=== PATIENT | female | born 1985 | race African-American/Black ===

== ENCOUNTER 2019-03-23 15:54 | Emergency (ER) | payer OTHER, SELFPAY ==
[2019-03-23 16:01] VITALS: BP 141/82; PULSE 65; RESP 15; TEMP 36.8; O2SAT 99; BMI 24.3
--- NOTE | 2019-03-23 16:21 | ED.ABDPAIN ---
HPI - Abdominal Pain General Chief Complaint: Abdominal Pain Stated Complaint: pain lower pelvic area Time Seen by Provider: 03/23/19 16:00 Source: patient Mode of arrival: ambulatory Limitations: no limitations History of Present Illness HPI narrative: 34-year-old female nonsmoker presents with severe right lower anterior abdominal pain that started today. 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 She denies any history of hernia or other injury. She was seen at [facility] and sent here for further evaluation. Her pain is worse with motion or palpation and improves with sitting still Related Data Allergies Allergy/AdvReac Type Severity Reaction Status Date / Time hydromorphone [From Dilaudid] Allergy itchy rash Verified 03/23/19 15:27 povidone-iodine AdvReac rash Verified 03/23/19 15:27 [From Betadine] soap [From Betadine] AdvReac rash Verified 03/23/19 15:27 Review of Systems Constitutional Denies chills, Denies fever(s), Denies lethargy and Denies weakness Eyes Denies change in vision, Denies eye discharge, Denies irritation and Denies loss of vision ENT Ears, Nose, Mouth, and Throat: Denies change in voice, Denies neck pain and Denies sore throat Cardiovascular Denies chest pain, Denies irregular heart rhythm, Denies lightheadedness, Denies palpitations, Denies dyspnea, Denies dyspnea on exertion and Denies orthopnea Respiratory Denies cough, Denies dyspnea, Denies dyspnea on exertion and Denies wheezing Gastrointestinal Gastrointestinal: Reports abdominal pain, Denies change in bowel habits, Denies diarrhea, Denies nausea and Denies vomiting Genitourinary Denies hematuria, Denies flank pain, Denies urinary incontinence and Denies urinary urgency Musculoskeletal Denies neck pain Integumentary/Breasts Denies pruritus, Denies erythema, Denies rash and Denies wounds Neurologic Denies confusion, Denies loss of vision and Denies weakness Psychiatric Denies anxiety, Denies confusion, Denies depression, Denies homicidal ideation and Denies suicidal ideation Endocrine Denies palpitations Hematologic/Lymphatic Denies easy bruising Allergic/Immunologic Denies wheezing [facility] Social History Smoking Status: Former smoker Social History Smoking Status: Former smoker Exam Narrative Exam Narrative: GEN: AOx3 and in mild distress EYES: Pupils are equal, round, and reactive to light and accommodation. Extraoccular muscles are intact bilaterally. There is no subconjunctival hemorrhage or exudate. CHEST: Lungs are clear to auscultation bilaterally and free of wheezes, rales, or rhonchi. Heart rate is regular rhythm, there are no murmurs, clicks, rubs, or gallops. There is no chest wall tenderness. ABD: Abdomen is soft. Palpable rent, but unlikely hernia in RLQ. There is no guarding or rebound. Bowel sounds are normal in all 4 quadrants. There is no mass or organomegaly. EXT: Full painless ROM of all extremities with no loss of sensation or strength. SKIN: Warm, pink, and dry. No erythema or rash Initial Vital Signs Initial Vital Signs: Vital Signs Temperature 98.2 F 03/23/19 16:01 Pulse Rate 65 03/23/19 16:01 Respiratory Rate 15 03/23/19 16:01 Blood Pressure 141/82 H 03/23/19 16:01 Pulse Oximetry 99 03/23/19 16:01 Course Vital Signs - 8 hr 03/23/19 16:01 Temperature 98.2 F Pulse Rate 65 Respiratory Rate 15 Blood Pressure 141/82 H Pulse Oximetry 99 MDM - Abdominal Pain MDM Narrative Medical decision making narrative: 34F, otherwise healthy with tearing burning pain after lifting heavy object. With palpable, reproducible abdominal wall defect consistent with rent vs. early hernia. No imaging required at this time. Return precautions given. Recommendation to limit lifting to <15 pounds for 7 days and follow up with her provider before advancing activity Discharge Plan Departure Patient Disposition: Home Clinical Impression: Abdominal wall bulge Discharge Date/Time: 03/23/19 16:32 Interventions: ED Discharge Assessment Last Done: 03/23/19 16:32 Instructions: DI for Abdominal Muscle Strain Activity Restrictions/Additional Instructions: *You have been diagnosed with [ abdominal wall strain, possible early hernia] *What to do: *Take medications as directed *Follow up with your primary care provider in 5-7 days, call for an appointment. Let them know you were seen in the Emergency Department and that we ask that you be seen in follow up *No lifting heavy objects over 15 pounds at least until you are seen in follow up *Return to ER if you should have any new, worsening or concerning symptoms, such as [ worsening pain, persistent vomiting, inability to have a bowel movement or other bothersome symptoms] Stand Alone Forms: Work Release Note
--- NOTE | 2019-03-23 17:10 | ED_ITS ---
HPI - Abdominal Pain General Chief Complaint: Abdominal Pain Stated Complaint: pain lower pelvic area Time Seen by Provider: 03/23/19 16:00 Source: patient Mode of arrival: ambulatory Limitations: no limitations History of Present Illness HPI narrative: 34-year-old female nonsmoker presents with severe right lower anterior abdominal pain that started today. 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 She denies any history of hernia or other injury. She was seen at [facility] and sent here for further evaluation. Her pain is worse with motion or palpation and improves with sitting still Related Data Allergies Allergy/AdvReac Type Severity Reaction Status Date / Time hydromorphone [From Dilaudid] Allergy itchy rash Verified 03/23/19 15:27 povidone-iodine AdvReac rash Verified 03/23/19 15:27 [From Betadine] soap [From Betadine] AdvReac rash Verified 03/23/19 15:27 Review of Systems Constitutional Denies chills, Denies fever(s), Denies lethargy and Denies weakness Eyes Denies change in vision, Denies eye discharge, Denies irritation and Denies loss of vision ENT Ears, Nose, Mouth, and Throat: Denies change in voice, Denies neck pain and Denies sore throat Cardiovascular Denies chest pain, Denies irregular heart rhythm, Denies lightheadedness, Denies palpitations, Denies dyspnea, Denies dyspnea on exertion and Denies orthopnea Respiratory Denies cough, Denies dyspnea, Denies dyspnea on exertion and Denies wheezing Gastrointestinal Gastrointestinal: Reports abdominal pain, Denies change in bowel habits, Denies diarrhea, Denies nausea and Denies vomiting Genitourinary Denies hematuria, Denies flank pain, Denies urinary incontinence and Denies urinary urgency Musculoskeletal Denies neck pain Integumentary/Breasts Denies pruritus, Denies erythema, Denies rash and Denies wounds Neurologic Denies confusion, Denies loss of vision and Denies weakness Psychiatric Denies anxiety, Denies confusion, Denies depression, Denies homicidal ideation and Denies suicidal ideation Endocrine Denies palpitations Hematologic/Lymphatic Denies easy bruising Allergic/Immunologic Denies wheezing [facility] Social History Smoking Status: Former smoker Social History Smoking Status: Former smoker Exam Narrative Exam Narrative: GEN: AOx3 and in mild distress EYES: Pupils are equal, round, and reactive to light and accommodation. Extraoccular muscles are intact bilaterally. There is no subconjunctival hemorrhage or exudate. CHEST: Lungs are clear to auscultation bilaterally and free of wheezes, rales, or rhonchi. Heart rate is regular rhythm, there are no murmurs, clicks, rubs, or gallops. There is no chest wall tenderness. ABD: Abdomen is soft. Palpable rent, but unlikely hernia in RLQ. There is no guarding or rebound. Bowel sounds are normal in all 4 quadrants. There is no mass or organomegaly. EXT: Full painless ROM of all extremities with no loss of sensation or strength. SKIN: Warm, pink, and dry. No erythema or rash Initial Vital Signs Initial Vital Signs: Vital Signs Temperature 98.2 F 03/23/19 16:01 Pulse Rate 65 03/23/19 16:01 Respiratory Rate 15 03/23/19 16:01 Blood Pressure 141/82 H 03/23/19 16:01 Pulse Oximetry 99 03/23/19 16:01 Course Vital Signs - 8 hr 03/23/19 16:01 Temperature 98.2 F Pulse Rate 65 Respiratory Rate 15 Blood Pressure 141/82 H Pulse Oximetry 99 MDM - Abdominal Pain MDM Narrative Medical decision making narrative: 34F, otherwise healthy with tearing burning pain after lifting heavy object. With palpable, reproducible abdominal wall defect consistent with rent vs. early hernia. No imaging required at this time. Return precautions given. Recommendation to limit lifting to <15 pounds for 7 d ays and follow up with her provider before advancing activity Discharge Plan Departure Patient Disposition: Home Clinical Impression: Abdominal wall bulge Discharge Date/Time: 03/23/19 16:32 Interventions: ED Discharge Assessment Last Done: 03/23/19 16:32 Instructions: DI for Abdominal Muscle Strain Activity Restrictions/Additional Instructions: *You have been diagnosed with [ abdominal wall strain, possible early hernia] *What to do: *Take medications as directed *Follow up with your primary care provider in 5-7 days, call for an appointment. Let them know you were seen in the Emergency Department and that we ask that you be seen in follow up *No lifting heavy objects over 15 pounds at least until you are seen in follow up *Return to ER if you should have any new, worsening or concerning symptoms, such as [ worsening pain, persistent vomiting, inability to have a bowel movement or other bothersome symptoms] Stand Alone Forms: Work Release Note
== END 2019-03-23 16:32 | disposition home or self-care (01) ==
PROVIDERS: Emergency Provider Emergency Medicine
DX: R19.00 Intra-abdominal and pelvic swelling, mass and lump, unspecified site (principal); X50.0XXA Overexertion from strenuous movement or load, initial encounter; Y99.0 Civilian activity done for income or pay
CPT/HCPCS: 99282

== ENCOUNTER → 2021-02-17 17:40 | Outpatient (CLI) | payer OTHER, SELFPAY ==
--- NOTE | 2021-02-17 | DI.MRI.S_ITS ---
PROCEDURE: MR KNEE RT WO CON INDICATIONS: Chondromalacia patellae, rt knee TECHNIQUE: Noncontrast sagittal PD fast spin echo and T2 fast spin echo with fat saturation, sagittal 3-D FLASH with fat saturation; coronal T1 spin echo and PD fast spin echo with fat saturation, and axial PD fast spin echo with fat saturation through the knee. COMPARISON: None. FINDINGS: Menisci: Lateral meniscus intact. Marked blunting of the free margin of the medial meniscus. Cruciate ligaments: Anterior cruciate ligament appears intact. Posterior cruciate ligament appears intact. Medial structures: The medial collateral ligament appears intact. Semimembranosus tendon appears intact. Visualized portions of the pes anserinus tendons appear normal. No abnormal bursal fluid. Lateral structures: The lateral collateral ligament intact. Biceps femoris tendon appears intact. Popliteus tendon grossly unremarkable. Iliotibial band appears intact. Anterior structures: Quadriceps tendon intact. Medial and lateral patellofemoral ligaments intact. There is mild patellar tendinopathy. Prepatellar and superficial infrapatellar subcutaneous edema/fluid. Bones and cartilage: No focal marrow contusion or discrete low signal fracture line. Within the medial compartment, mild surface fraying of the central weight-bearing femoral and tibial cartilage. Within the lateral compartment, mild surface fraying of the central weight-bearing femoral and tibial cartilage. Intrasubstance signal change of the tibial cartilage. Within the patellofemoral compartment, no focal cartilage defect. Joint space: No joint effusion. Trace fluid between the semimembranosus and medial gastrocnemius tendons without definite formed cyst. No specific evidence of intra-articular loose body. IMPRESSION: Blunting of the free margin of the medial meniscus raising possibility of radial tear. Mild joint degeneration as above Patellar tendinopathy with adjacent fluid/edema Dictated by: Brayden Ridley M.D. on 02/18/2021 at 9:35 Approved by: Brayden Ridley M.D. on 02/18/2021 at 9:40
== END ==
PROVIDERS: Referring Provider Counselor Mental Health; Visit Provider Counselor Mental Health
DX: M22.41 Chondromalacia patellae, right knee (principal); M17.11 Unilateral primary osteoarthritis, right knee
CPT/HCPCS: 73721

== ENCOUNTER → 2022-12-14 10:21 | Outpatient (CLI) | payer BC, SELFPAY ==
--- NOTE | 2022-12-14 | DI.RAD.S_ITS ---
PROCEDURE: XR CHEST 2V INDICATIONS: Other nonspecific abnormal finding of lung field TECHNIQUE: 2 views of the chest were acquired. COMPARISON: None. FINDINGS: Surgical changes and devices: None. Lungs and pleura: Lungs are clear. No pleural effusions or pneumothorax. Mediastinum: Mediastinal contours are normal. Heart size is normal. Bones and chest wall: No suspicious bony abnormalities. Soft tissues appear unremarkable. IMPRESSION: No acute cardiopulmonary pathology. Dictated by: Vignesh Lutz M.D. on 12/14/2022 at 12:01 Approved by: Vignesh Lutz M.D. on 12/14/2022 at 12:02
== END ==
PROVIDERS: PCP Registered Nurse; Referring Provider Registered Nurse; Visit Provider Registered Nurse
DX: R91.8 Other nonspecific abnormal finding of lung field (principal)
CPT/HCPCS: 71046

== ENCOUNTER → 2023-12-08 13:34 | Outpatient (ROUT) | payer BC, SELFPAY ==
[2023-12-08 13:50] LABS: INR 1.1 (0.9-1.3); Prothrombin Time 12.3 SECONDS (9.4-12.5)
== END ==
PROVIDERS: PCP Registered Nurse; Visit Provider Registered Nurse
DX: N93.9 Abnormal uterine and vaginal bleeding, unspecified (principal); R10.2 Pelvic and perineal pain; Z98.890 Other specified postprocedural states
CPT/HCPCS: 85610

== ENCOUNTER → 2023-12-09 06:36 | Outpatient (CLI) | payer BC, SELFPAY ==
--- NOTE | 2023-12-09 06:38 | DI.US.S_ITS ---
PROCEDURE: US PELVIC COMPLETE INDICATIONS: ABNORMAL UTERINE BLEEDING/HISTORY OF MYOMECTOMY TECHNIQUE: Real-time scanning was performed of the pelvic organs, with image documentation. Additional endovaginal scanning was necessary due to incomplete visualization of the adnexal and endometrial structures by transabdominal scanning. COMPARISON: None. FINDINGS: Uterus: Uterus is anteverted and enlarged in size at 10.8 x 9.0 x 9.2 cm. The myometrium is heterogeneous showing multiple fibroids. The endometrium measures 6.4 mm combined thickness. More than 3 fibroids are noted; lobe all fibroids are: Right anterior intramural measuring 3 x 2.4 x 2.8 cm; Midline intramural fibroids measuring 5.9 x 6.8 x 4.9 cm and 4.2 x 4.5 x 3.8 cm respectively. Ovaries: Ovaries were not visualized Other: No pathologic free abdominal or pelvic fluid. IMPRESSION: Enlarged, fibromatous uterus Nonvisualized ovaries >> We strive to produce accurate, complete, and clear reports of imaging services. To assist us in improving patient care, this report was composed using standard report templates and voice recognition software. Therefore, it may contain abnormal punctuation, insertions and/or omissions. Occasional wrong-word or sound-alike substitutions may occur. Though we review the report and make efforts to correct it, we do recommend that the report be read carefully in proper context to recognize any text inaccuracies. Dictated by: Anjel Boothe M.D. on 12/09/2023 at 13:00 Approved by: Anjel Boothe M.D. on 12/09/2023 at 13:07
== END ==
PROVIDERS: PCP Registered Nurse; Referring Provider Registered Nurse; Visit Provider Registered Nurse
DX: N93.9 Abnormal uterine and vaginal bleeding, unspecified (principal); D25.1 Intramural leiomyoma of uterus; R10.2 Pelvic and perineal pain; Z98.890 Other specified postprocedural states
CPT/HCPCS: 76830; 76856

== ENCOUNTER 2024-01-26 12:22 | Day surgery (SDC) | payer BC, SELFPAY ==
[2024-01-12 15:04] VITALS: BMI 38.6
[2024-01-26] VITALS (9 sets, daily range): BP systolic 117–133; BP diastolic 60–77; PULSE 66–85; RESP 16–25; TEMP 36.3–37; O2SAT 96–100; BMI 38.6
--- NOTE | 2024-01-26 | PATH_ITS ---
[facility] Accession Number: [id number] No. of containers..01 Tissue . 01 Material submitted: . uterus - UTERUS, CERVIX, BILATERAL FALLOPIAN TUBES . 01 Diagnosis: UTERUS, CERVIX AND BILATERAL FALLOPIAN TUBES, HYSTERECTOMY AND BILATERAL SALPINGECTOMY: Cervix with no significant diagnostic alterations. Secretory endometrium; no endometrioid intraepithelial neoplasia and no malignancy. Adenomyosis. Leiomyomata. Bilateral fimbriated fallopian tubes with no significant diagnostic alterations. [facility] 02/02/2024 1103 Local . 01 Electronically signed: . Cindy Gan MD, Pathologist NPI- [id number] . 01 Gross description: . Received in formalin, labeled with two identifiers and uterus, cervix, bilateral fallopian tubes, is a fragmented uterus (601 gm, 19.9 x 15.5 x 7.5 cm) with cervix (3.0 x 2.5 cm), two unoriented roughened presumed fallopian tubes (2.2 x 0.5 cm and 4.2 x 0.7 cm, respectively) with no additional adnexa. The serosa is garibay and wrinkled with areas of pinpoint hemorrhage measuring up to 0.5 cm in greatest dimension. The ectocervix is garibay and wrinkled, and a long purple suture is identified with no designation per the requisition. The paracervical margin is inked blue. The os is slit-like measuring 1.2 cm in diameter. The presumed endometrium is garibay and velvety, averaging 0.1 cm thick. The myometrium is garibay and trabecular with multiple well-circumscribed, white, whorled nodules measuring up to 5.5 cm in greatest dimension with no hemorrhage or necrosis identified. The longer tube has roughened serosa with possible cauterized fimbriae with no cysts identified. Sectioning reveals an unremarkable stellate lumen. The shorter tube has roughened garibay serosa with possible fimbriae and no cysts identified. Sectioning reveals an unremarkable pinpoint lumen. . Compactor Driver sections are submitted as follows: A1: Cervix. A2: Endometrium. A3: Serosa with pinpoint hemorrhage. A4-A5: Nodules. A6: Longer fallopian tube to include one-half of bisected fimbriae and cross sections. A7: [place] fallopian tube to include one-half of bisected fimbriae and cross sections. ([id number]) /FRR 01/28/2024 1605 Local . 01 Pathologist provided ICD-10: N92.0, D25.9, N80.30 . 01 CPT . 542874 Specimen Comment: A courtesy copy of this report has been sent to [facility] Performed at: 01 [facility] [address] [place] [address], [place], [place] [id number] MD Amari Kumar MD Phone: [phone]
--- NOTE | 2024-01-26 13:02 | PM.PREOP ---
Pre-operative Note Interval Note History & Physical reviewed/Exam performed by Physician: Yes Changes to H&P: No H&P completed within 30 days and has changed as indicated here:: see H&P from 01/23/24
[2024-01-26] MEDS: LACTATED RINGERS 1,000 ML 21 ML IV ×3 (13:05→21:10)
[2024-01-26] MEDS: SCOPOLAMINE 1 PATCH TOP (13:05)
[2024-01-26] MEDS: ACETAMINOPHEN 325 MG TABLET 975 MG PO (13:07)
[2024-01-26] MEDS: CEFAZOLIN 2 GM/100 ML PREMIX 100 ML IV (13:41)
[2024-01-26 13:43] LABS: Add Manual Diff / Slide Review NO; Basophils Absolute Auto 0 /uL (0-100); Basophils Percent Auto 0.6 % (0-2); Eosinophils Absolute Auto 0 /uL (0-450); Eosinophils Percent Auto 0.7 % (2-4); Hematocrit 30.9 % (36-46); Hemoglobin 10.1 g/dL (12.0-16.0); Lymphocytes Absolute Auto 1200 /uL (1100-4500); Lymphocytes Percent Auto 24.6 % (25-40); Mean Corpuscular HGB Conc 32.8 % (30-36); Mean Corpuscular Hemoglobin 27.5 PG (26-34); Mean Corpuscular Volume 83.8 fL (80-100); Monocytes Absolute Auto 400 /uL (0-900); Monocytes Percent Auto 8.5 % (3-14); Neutrophils Absolute Auto 3300 /uL (1500-7000); Neutrophils Percent Auto 65.6 % (50-75); Platelet Count 255 X10^3/uL (150-400); Red Blood Cell Count 3.69 X10^6/uL (4.0-5.2); Red Cell Distribution Width 14.7 % (11.6-14.8)
--- NOTE | 2024-01-26 14:19 | SUR.OPER ---
Lithotomy on padded OR bed. [place] Pad Positioner under torso. Head on pillow, arms padded and tucked at sides. Legs secured in padded yellow fins stirrups.
[2024-01-26] MEDS: BUPIVACAINE 0.25% (PF) VIAL 30 ML INJ (14:26)
--- NOTE | 2024-01-26 17:00 | PM.OP.1 ---
Operative Date/Time/Diagnoses Date of procedure: 01/26/24 Time of procedure: 13:30 Pre-op diagnosis: 1. Abnormal uterine bleeding 2. Uterine leiomyomas Post-op diagnosis: same Procedure & Clinicians Procedure: Total laparoscopic hysterectomy Bilateral salpingectomy Cystoscopy Same procedure as scheduled: Yes Indications: 38yo G0 with known uterine fibroids with history of having had an open myomectomy in 2019, and states that her pain and bleeding were improved after this. She states that over the last few years, however, her periods have become increasingly heavy and painful again. She is currently having monthly cycles, lasting 2-4 days, with heavy flow. She states that she will soak through a maxi pad every 1-2 hours. She has to sleep on a towel and where sweats at night because she will soak through. She desires definitive surgical management. Surgeon: Brenda Quinn District Loss Prevention Manager: Madeline Dupree Anesthesia Type: General Operative Notes Findings: Enlarged multifibroid uterus with suspected endometriosis implants. Normal bilateral fallopian tubes, and bilateral ovaries. Some adhesions noted between the fallopian tubes and the pelvic sidewall. Normal appearing liver edge and gallbladder. Normal appendix. Closure Type: primary Specimen(s): other (uterus, cervix, bilateral fallopian tubes) Applied: catheter Estimated Blood Loss (mL): 500 Blood products transfused: none Procedure in detail: The risks, benefits, indications and alternatives of the procedure were reviewed with the patient and informed consent was obtained. The pt was taken to the operating room where general anesthesia was obtained without difficulty. The pt was then placed in the low lithotomy position using Stas Stirrups and arms were tucked with padding. Sequential compression devices were placed bilaterally for VTE prophylaxis. She was then prepped and draped in the sterile fashion and a Mina catheter was placed. A mediafeedia-care uterine manipulator was placed through the cervix into the uterus for uterine manipulation. Attention was then turned to the patient?s abdomen were a 5mm skin incision was made in the inferior aspect of the umbilicus after injecting 0.25% Marcaine. Attempt made to insert a 5mm trocar and sleeve into the peritoneal cavity under direct visualization, however this was unsuccessful. Attempt was made to insert the Veress needle, however this was also unsuccessful. The skin incision was then extended, and S retractors were used to dissect down to the fascia, which was then snipped with Jiménez scissors. The 5mm trocar was then able to be inserted under direct visualization into the peritoneal cavity at a 90-degree angle while tenting up the abdominal wall. Intra-peritoneal placement was confirmed under direct visualization with the laparoscope with entry pressure <5 mmHg. A pneumoperitoneum was obtained with several liters of CO2 gas, maximum pressure of 15 mmHg. Upon entry into the peritoneal cavity, structures immediately below the incision were inspected and found to be free of injury. A survey of the patient's abdomen and pelvis was notable for the above findings. Two additional 5mm port sites, one in the right lateral side and one in the left lateral side, were placed under direct laparoscopic guidance. The Powerseal device was used to clamp, cut, and ligate the left fallopian tube, which was removed via the lateral port. The same procedure was done on the right side, with the right fallopian tube removed from the abdomen. The utero-ovarian and round ligaments were then clamped, cut, and ligated bilaterally. The anterior broad ligament was then incised along the bladder reflection bilaterally and the bladder was dissected off the lower uterine segment until endopelvic fascia was visualized. The scope was then exchanged for a 30 degree scope for better visualization around the uterus. The uterine arteries were thought to be ligated, however with further skeletonization of the colpotomy ring, the uterine on the left side was transected. The bleeding was able to be controlled with the Powerseal. The uterosacral ligaments and cardinal ligaments were then transected bilaterally. The posterior colpotomy was then made using the Bovie L-hook and continued circumferentially inferior to the cervix using the colpotomy ring as a guide. Attention was then directed vaginally. The entire cervix and uterus were then morcellated vaginally, and completely removed from the abdomen. There was brisk bleeding from the right cardinal ligament, thus this was carefully ligated with an 0 Vicryl [id number] suture. Excellent hemostasis was noted. The vaginal cuff was then closed vaginally with a series of 0 Vicryl [id number] sutures. Due to the morcellation process, the vagina was then irrigated, inspected, and no injury was noted. The mina catheter was then removed, and the 70 degree cystoscope was then primed and advanced through the urethra and into the bladder. Both ureteral orifices were identified and bilateral efflux of urine was visualized. A survey of the bladder did not show defects or visible suture. The cystoscope was then removed and the bladder was drained, and the mina catheter was replaced. Attention was then returned to the abdomen, where the pelvis was then irrigated and all pedicles inspected. Excellent hemostasis was noted. The pneumoperitoneum was then released, and the ports were removed. The skin incisions were then reapproximated using 4-0 monocryl suture in a subcuticular fashion and covered with Dermabond. At the completion of the case the sponge and needle counts were correct x 2. The patient was taken to the PACU in stable condition. Complications: none Post-operative Condition: stable Disposition: PACU Plan for aftercare: Plan for overnight stay with discharge in the morning.
[2024-01-26] MEDS: OXYCODONE IR 5 MG TABLET PO ×2 (17:16→21:12)
[2024-01-26] MEDS: KETOROLAC 30 MG/ML VIAL IV ×2 (17:43→23:58)
[2024-01-26] MEDS: ONDANSETRON 4 MG/2 ML INJ IV (17:57)
[2024-01-26] MEDS: MORPHINE 2 MG/ML INJ IV (18:20)
--- NOTE | 2024-01-26 18:31 | PC.NURSE ---
Patient arrived from PACU at 1730 drowsy and moaning she is able to answer yes and no questions. But just appears uncomfortable saying It hurts and I'm cold. VSS, afebrile on RA. 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 Danette pad with scant bleeding. Goyal in place, bed alarm on, call light in reach, SCD's on and IVF LR at 21ml/hr. She continues to moan in pain after toradol IV administered, and is burping and feeling nauseated. Per spouse at the bedside the nausea is typical for the patient after anesthesia. MD Quinn notified of discomfort and patient given 2 mg Morphine IV x1 with good effect. Currently resting quietly with continouos pulse ox and post op VS. Continue frequent monitoring.
--- NOTE | 2024-01-26 19:53 | PC.NURSE ---
RN received call from lab that technicians were unable to draw patient this a.m. for H/H order due to being a difficult stick. Lab returned this afternoon and attempted to redraw H/H without success. BRENT Ayoub notified and received ok order to d/c H/h check for this shift. VSS. BRENT also notified of patient's copious intake and out put >3,800 this afternoon. Continued to monitor and encourage alternative drinks vs water. No s/sx of edema, SOB or fluid volume overload.
[2024-01-26] MEDS: DOCUSATE 100 MG CAPSULE 200 MG PO (21:09)
[2024-01-26] MEDS: ACETAMINOPHEN 325 MG TABLET 650 MG PO (23:58)
[2024-01-27 01:41] VITALS: BP 109/64; PULSE 67; RESP 16; TEMP 36.2; O2SAT 100
[2024-01-27] MEDS: ACETAMINOPHEN 325 MG TABLET 650 MG PO ×2 (05:27→10:43)
[2024-01-27] MEDS: KETOROLAC 30 MG/ML VIAL IV ×2 (05:27→10:45)
[2024-01-27 05:45] VITALS: BP 103/63; PULSE 75; RESP 18; TEMP 36.3; O2SAT 97
[2024-01-27 07:00] VITALS: BP 103/57; PULSE 63; RESP 19; TEMP 36.7; O2SAT 100
[2024-01-27] MEDS: OXYCODONE IR 5 MG TABLET PO (08:44)
[2024-01-27] MEDS: DOCUSATE 100 MG CAPSULE 200 MG PO (09:00)
[2024-01-27 11:00] VITALS: BP 105/58; PULSE 67; RESP 20; TEMP 36.8; O2SAT 99
--- NOTE | 2024-01-27 11:43 | PM.DS.1 ---
History of Present Illness History of Present Illness Date Patient Seen: 01/27/24 Time Patient Seen: 07:30 Chief complaint: Lap Total Hysterectomy *OPB* Discharge Providers Provider Discharge Date: 01/27/24 Primary care physician: GUNNAR Dobbins Discharge provider: Brenda Quinn DO Summary Hospital Course Discharge Diagnosis: 1. Abnormal uterine bleeding 2. Uterine fibroids Hospital Course: 38-year-old female with AUB-L admitted for total laparoscopic hysterectomy with bilateral salpingectomy. Her procedure was uncomplicated. On postop day #1, patient was ambulating, tolerating regular diet, voiding spontaneously, with no vaginal bleeding. Her pain was well controlled with oral pain medications. Thus she was deemed appropriate for discharge on postoperative day #1. Status at Discharge Cognitive/behavioral status at discharge: oriented Functional status at discharge: independent ambulation Overall status at discharge: patient is progressing back to baseline Time Spent with Patient Time spent: Less than 30 minutes Exam Vital Signs (past 8 hours): - 01/27/24 05:45 01/27/24 07:00 01/27/24 11:00 Temperature 97.3 F L 98.1 F 98.2 F Pulse Rate 75 63 67 Respiratory Rate 18 19 20 Blood Pressure 103/63 103/57 L 105/58 L Pulse Oximetry 97 100 99 Oxygen Flow Rate 0 0 0 Oxygen Delivery Method Room Air Oxygen Flow Rate 0 Const General: comfortable and No acute distress Resp Effort & Inspection: normal respiratory effort and able to speak in complete sentences GI Inspection: normal to inspection Palpation: soft, No guarding and tender (Mild) Skin Other: 3 laparoscopic incisions clean/dry/intact with dermabond in place Psych Mood: congruent mood Affect: normal affect Objective Labs 01/26/24 13:12 Labs: Laboratory Results - last 24 hr 01/26/24 13:12 WBC 5.0 RBC 3.69 L Hgb 10.1 L Hct 30.9 L MCV 83.8 MCH 27.5 MCHC 32.8 RDW 14.7 Plt Count 255 Neut % (Auto) 65.6 Lymph % (Auto) 24.6 L Trinity % (Auto) 8.5 Eos % (Auto) 0.7 L Baso % (Auto) 0.6 Neut # (Auto) 3300 Lymph # (Auto) 1200 Trinity # (Auto) 400 Eos # (Auto) 0 Baso # (Auto) 0 Blood Type O Positive Antibody Screen Negative PFSH Medical History Leiomyoma of body of uterus Heavy menstrual bleeding Obesity (BMI 30-39.9) Surgical History History of myomectomy (~2019) Social History household members: spouse Smoking Status: Former smoker alcohol intake: current substance use type: marijuana Discharge Assessment & Plan Assessment and Plan Assessment: 38-year-old female with AUB-L now status post TLH/BS, doing well in the postoperative period. Plan of Treatment: Patient is meeting discharge criteria, thus will be discharged to home with appropriate postop followup. Discharge Plan Discharge Plan Patient Disposition: Home Provider Discharge Comment: Take ibuprofen 600 mg every 6 hours and acetaminophen 650 mg every 6 hours for pain. Use oxycodone 5 mg every 4 hours as needed for severe pain. Avoid lifting greater than 20 lb for least 4 weeks. Avoid placing anything in the vagina for at least 6 weeks. Discharge orders & Medications Discharge Orders: Discharge (Order); Ordered 01/27/24 Ordered By: Brenda Quinn Prescriptions: New oxycodone 5 mg Tablet 5 mg PO Q4HR PRN (Reason: Pain, Moderate (4-6)) Qty: 10 0RF Continued cholecalciferol (vitamin D3) 1,250 mcg (50,000 unit) capsule 1,250 mcg PO DAILY Follow up/Referrals: Brenda Quinn DO [Physician] - Diet/Activity/Treatments Diet: Diet as Tolerated Activity: As tolerated Skin/Wound/Dressing Care Skin care: You may shower normally. Report to your healthcare provider any signs of infection, such as:: chills, fever, increased pain, unusual drainage and unusual redness Visit Report/Discharge Packet Instructions: DI for Hysterectomy, DI for Laparoscopy, DI for Prescription Opioid Use Stand Alone Forms: Patient Portal/API Discharge Data Primary Care Provider: Cathi Curran Attending Provider: Brenda Quinn
--- NOTE | 2024-01-27 12:35 | PC.NURSE ---
Patient is A&OX4, VSS, afebrile on RA. Incisions to abdomen c/d/i. JOSEE. She is able to void after mina removal this a.m. without difficulty, mild spotting and minima clots. She denies dizziness and reports pain level is tolerable with prn oxycodone and scheduled tylenol and toradol. She is evaluated by MD Quinn at bedside and cleared for discharge home this afternoon. Patient verbalizes understanding of medications, activity limitations, s/sx of infection as well as follow up appointments. She is escorted to private vehicle with spouse and all of her belongings today at 1245 pm.
--- NOTE | 2024-01-27 14:12 | CM.DANOTE ---
Initial DCP Assessment Note Pt is a 38 yo female, resident of [place] , now POD#1 from lap total hysterectomy by Dr Quinn PCP: Cathi Curran Payer: [facility] Reviewed chart, met w/patient to introduce self and role. Patient denies needs from this [employer], appreciative for the visit. Says she will return home w/her spouse to assist as needed. Patient indp in all aspects at her baseline. No barriers identified at this time to patient's safe discharge home w/family to assist; close outpatient f/u recommended. Plan: Discharge home w/spouse, close outpatient follow up recommended. 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 No History Provided By Significant Other Prior Living Arrangements House Household Members spouse Type of transporation used prior to Drives own vehicle admit Independent with ADL's Yes Is patient alert and oriented? Yes Barriers to Discharge No Discharge Plan Home Transportation Arrangement Family Referrals Initiated None needed
== END 2024-01-27 12:45 | disposition home or self-care (01) ==
LOC: OR 12:27 → AC 12:43
PROVIDERS: PCP Registered Nurse; Referring Provider Student in an Organized Health Care Education/Training Program; Visit Provider Student in an Organized Health Care Education/Training Program
PROC: 0UT94ZZ Resection of Uterus, Percutaneous Endoscopic Approach (ICD-10-PCS; CPT 58571; principal; 2024-01-26 13:30)
DX: N92.0 Excessive and frequent menstruation with regular cycle (principal); D25.9 Leiomyoma of uterus, unspecified; D26.1 Other benign neoplasm of corpus uteri
CPT/HCPCS: 58571; 85025; 86850; 86900; 86901; J0690; J1100; J1885; J2250; J2270; J2274; J2405; J2704; J3010

== ENCOUNTER → 2025-02-22 13:05 | Outpatient (CLI) | payer BC, SELFPAY ==
[2024-01-26 17:49] VITALS: BMI 38.6
--- NOTE | 2025-02-22 13:07 | DI.MG.S_ITS ---
MM screening mammo BI: 02/22/2025. BI-RADS: 0 CLINICAL: 40-year old female for bilateral screening mammogram. Tyrer-Cuzick lifetime risk of 22.2%. No personal or first-degree family history of breast cancer. Current reported family history of breast cancer: paternal grandmother. PRIOR EXAMS: None. This is a baseline mammogram. MAMMOGRAPHY TECHNIQUE: 2D and 3D (tomosynthesis) digital mammographic views obtained, with additional images as needed for full coverage. Current study was also evaluated with a Computer Aided Detection (CAD) system. DENSITY C. The breasts are heterogeneously dense, which may obscure small masses. MAMMOGRAPHY FINDINGS Right: No suspicious mass, asymmetry, microcalcification, or other abnormality seen. Left: Outer at 2:00, Middle depth: Focal asymmetry needing additional imaging evaluation. IMPRESSION: Right * No evidence of malignancy. Left (Asymmetry): Outer at 2:00, Middle depth * Incomplete - focal asymmetry needing additional imaging evaluation. RECOMMENDATIONS Left: Outer at 2:00, Middle depth * Further evaluation with diagnostic mammography and diagnostic ultrasound. Ultrasound to be performed only if needed. OVERALL ASSESSMENT CATEGORY BI-RADS-0: Incomplete - Need Additional Imaging Evaluation. ELECTRONICALLY SIGNED: Zach Lopez M.D. on 02/22/2025 at 04:49:08 PM PT Interpreting Station ID: [id number]
== END ==
LOC: MAMMO 13:05
PROVIDERS: PCP Registered Nurse; Referring Provider Registered Nurse; Visit Provider Registered Nurse
DX: Z12.31 Encounter for screening mammogram for malignant neoplasm of breast (principal); Z80.3 Family history of malignant neoplasm of breast; R92.333 Mammographic heterogeneous density, bilateral breasts
CPT/HCPCS: 77063; 77067

== ENCOUNTER → 2025-04-24 13:20 | Outpatient (CLI) | payer BC, SELFPAY ==
[2024-01-26 17:49] VITALS: BMI 38.6
--- NOTE | 2025-04-24 13:23 | DI.MG.S_ITS ---
MM diagnostic mammo unilat LT, US breast LT limited: 04/24/2025 BI-RADS: 4 CLINICAL: 40-year old female for left diagnostic mammogram and left diagnostic breast ultrasound that is a recall from screening on 02/22/2025. Tyrer-Cuzick lifetime risk of 22.2%. No personal or first-degree family history of breast cancer. Current reported family history of breast cancer: paternal grandmother. PRIOR EXAMS 02/22/2025. MAMMOGRAPHY TECHNIQUE: 2D and 3D (tomosynthesis) digital mammographic views obtained, with additional images as needed for full coverage. Current study was also evaluated with a Computer Aided Detection (CAD) system. ULTRASOUND TECHNIQUE TARGETED Left Breast Ultrasound: Real-time ultrasound exam was performed focused to area of clinical and/or imaging concern. Real-time edward scale and color doppler imaging of the area of clinical interest was performed with image documentation. DENSITY Left: C. The breasts are heterogeneously dense, which may obscure small masses. MAMMOGRAPHY FINDINGS Left (finding-1): Outer at 2:00, Middle depth, measuring 1.4cm: There is an indistinct mass present. ULTRASOUND FINDINGS Left (finding-1): Upper Outer at 2:00, 6 cm from nipple, measuring 1 x 1 x 1.6 cm. Previous report: Outer: Correlating with findings on mammogram there is an irregularly shaped, hypoechoic mass. Left: Upper Outer at 2:00, 8 cm from nipple, measuring 2.8 x 0.6 x 1.5 cm: There is an oval, circumscribed, hypoechoic mass that is parallel. This is an incidental finding. Left: No abnormal lymph nodes are seen in the axilla. IMPRESSION: Left (Mass): Upper Outer at 2:00, 6 cm from nipple, measuring 1 x 1 x 1.6 cm. Previous report: Outer * Suspicious findings with likelihood of malignancy. Left (Mass): Upper Outer at 2:00, 8 cm from nipple, measuring 2.8 x 0.6 x 1.5 cm * Probably Benign. RECOMMENDATIONS Left: Upper Outer at 2:00, 6 cm from nipple * Ultrasound-guided biopsy for further evaluation. Left: Upper Outer at 2:00, 8 cm from nipple * Six month followup with diagnostic ultrasound. COMMENTS: Findings and recommendations were conveyed to the patient during today's evaluation by Dr. Mercado. OVERALL ASSESSMENT CATEGORY BI-RADS-4: Suspicious. ELECTRONICALLY SIGNED: Trupti Shelton M.D. on 04/24/2025 at 03:35:36 PM PT Interpreting Station ID: [id number]
== END ==
PROVIDERS: PCP Registered Nurse; Referring Provider Registered Nurse; Visit Provider Registered Nurse
DX: R92.8 Other abnormal and inconclusive findings on diagnostic imaging of breast (principal); N63.21 Unspecified lump in the left breast, upper outer quadrant; R92.332 Mammographic heterogeneous density, left breast; Z80.3 Family history of malignant neoplasm of breast
CPT/HCPCS: 76642; 77065; G0279